=== PATIENT | male | born 1990 | race Caucasian/White ===

== ENCOUNTER 2018-09-09 23:45 | Emergency (ER) | payer SELFPAY ==
[~2018-09-09] VITALS: Ht 170.2 cm; Wt 86.4 kg
[2018-09-10] MEDS ORDERED: PERTUSS(ACELL),DIPH,TET VAC/PF 0.5 ML VIAL IM ONE (02:15)
[2018-09-10 03:00] VITALS: BP 161/99
== END 2018-09-10 03:19 | disposition home or self-care (01) ==
LOC: EMS 23:49
DX: S51.012A Laceration without foreign body of left elbow, initial encounter (principal); W25.XXXA Contact with sharp glass, initial encounter; Y93.89 Activity, other specified; Y92.89 Other specified places as the place of occurrence of the external cause; Y99.8 Other external cause status
CPT/HCPCS: 12001; 90471; 90715